=== PATIENT | male | born 1985 | race Caucasian/White ===

== ENCOUNTER 2020-12-17 12:21 | Emergency (ER) | payer OTHER, SELFPAY ==
--- NOTE | ~2020-12-17 | CT_ITS ---
EXAMINATION: CT HEAD WITHOUT CONTRAST CLINICAL INFORMATION: Seizure, head injury. Rule out fracture COMPARISON: CT brain 04/04/2020 TECHNIQUE: Contiguous axial imaging was performed from the skull base to vertex without intravenous administration of contrast. This CT examination was performed using dose optimization techniques as appropriate, variously including the following: *Automated exposure control *Adjustment of mA and/or kV according to patient size (this includes techniques or standardized protocols for targeted exams where dose is matched to indication/reason for exam; i.e. extremities or head) *Use of iterative reconstruction technique DLP: 843 mGy-cm FINDINGS: There are bilateral frontal cortical and left parietotemporal lobe infarcts. There is no acute intra-axial, extra axial bleed, masses or midline shift. There are hyperdense focus in the left frontal lobe subdural location on axial image 30/09's unchanged to previous exam from 2019. There is no acute infarction in evolution. The lateral ventricles are symmetrical in size and configuration without enlargement. There is no abnormal attenuation within the brain parenchyma. There is left frontal craniotomy with a graft in place. Also visualized is a left parietal craniotomy with bone flap in place. Bilateral paranasal sinuses and mastoid air cells are well-aerated. CT/CT head/brain wo IV con IMPRESSION: No acute intracranial process seen. 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 Craniotomy changes on the left side are stable as well. No major change compared to previous study 04/04/2020.
[2020-12-17 12:25] VITALS: BP 151/105; PULSE 140
[2020-12-17 12:26] VITALS: BP 136/78; PULSE 125; RESP 18; TEMP 37.2; O2SAT 97; BMI 35.4
[2020-12-17] MEDS: LORazepam 2 MG/ML VIAL IVPUSH (12:43)
[2020-12-17] MEDS: 0.9 % Sodium Chloride 1,000 ML 999 ML IV ×2 (12:44→14:07)
[2020-12-17 12:54] LABS: Basophils Percent Auto 0.3 % (0-2); Eosinophils Absolute Auto 0.1 X10*3/uL (0.0-0.4); Eosinophils Percent Auto 0.9 % (0-4); Hematocrit 46.3 % (42-52); Hemoglobin 15.3 g/dl (14.0-18.0); Imm Gran Abs Auto 0.12 X10*3/uL (0.00-0.03); Imm Gran Pct Auto 1.1 % (0.0-0.4); Lymphocytes Absolute Auto 0.5 X10*3/uL (1.2-4.9); Lymphocytes Percent Auto 4.6 % (20-40); MANUAL DIFF FLAG SCAN; Mean Corpuscular Hemoglobin 27.8 pg (27.0-33.0); Mean Corpuscular Volume 84.2 fL (80-98); Mean Platelet Volume 9.6 fL (9.4-12.4); Monocytes Percent Auto 9.6 % (2-11); Neutrophils Absolute Auto 8.8 X10*3/uL (2.0-8.3); Neutrophils Percent Auto 83.5 % (45-73); Platelet Count 309 X10*3/uL (160-400); Red Cell Distribution Width 15.7 % (11.0-16.0); SCAN SMEAR FLAG 1; White Blood Count 10.5 X10*3/uL (4.8-10.8)
[2020-12-17 13:09] VITALS: BP 129/63; PULSE 118; RESP 15; O2SAT 98
[2020-12-17 13:15] LABS: Prothrombin Time 12.2 SEC (10.8-13.0)
[2020-12-17 13:19] LABS: Partial Thromboplastin Time 20.9 SEC (24.1-38.0)
[2020-12-17 13:20] LABS: Magnesium 2.1 mg/dL (1.6-2.6)
[2020-12-17 13:21] LABS: Alanine Aminotransferase 46 U/L (0-40); Albumin Level 3.9 g/dL (3.5-5.0); Alkaline Phosphatase 54 U/L (39-117); Anion Gap 21 (12-20); Aspartate Amino Transferase 48 U/L (5-37); Bilirubin Total 1.4 mg/dL (0.0-1.0); Blood Urea Nitrogen 8 mg/dL (9-16); Calcium 8.3 mg/dL (8.4-10.2); Carbon Dioxide 19 mmol/L (22-29); Chloride 103 mmol/L (96-108); Creatinine Clr Calc Pharmacy 100.8; Estimated Glomerular Filt Rate > 60; Glucose Random 108 mg/dL (60-115); Potassium 5.4 mmol/L (3.3-5.1); Sodium 138 mmol/L (135-145)
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
[2020-12-17 13:33] LABS: Phosphorus 1.6 mg/dL (2.7-4.5)
[2020-12-17 13:40] LABS: SLIDE REVIEW VERIFIED
[2020-12-17 14:02] VITALS: BP 133/79; PULSE 114; RESP 17; TEMP 37.1; O2SAT 97
[2020-12-17] MEDS: Diphth,Pertus(ACell),Tet Adult 0.5 ML SYRINGE IM (15:49)
--- NOTE | 2020-12-17 15:52 | PC.NURSE ---
Contact made to mother for ride. Mom to pick patient up from waiting room.
== END 2020-12-17 16:43 | disposition home or self-care (01) ==
PROVIDERS: Emergency Provider Emergency Medicine Emergency Medical Services; PCP Internal Medicine
DX: G40.909 Epilepsy, unspecified, not intractable, without status epilepticus (principal); S00.01XA Abrasion of scalp, initial encounter; S00.81XA Abrasion of other part of head, initial encounter; W17.89XA Other fall from one level to another, initial encounter; R45.6 Violent behavior; Z87.820 Personal history of traumatic brain injury; Y93.89 Activity, other specified; Y92.019 Unspecified place in single-family (private) house as the place of occurrence of the external cause; Y99.9 Unspecified external cause status
CPT/HCPCS: 36415; 70450; 80053; 83735; 84100; 85025; 85610; 85730; 90471; 90715; 96361; 96374; 96375; 99283; 99284; J2060